=== PATIENT | female | born 1990 | race Caucasian/White ===

== ENCOUNTER 2020-04-07 19:38 | Emergency (ER) | payer OTHER, MEDICAID, SELFPAY ==
[2020-04-07 19:57] VITALS: BP 133/93; PULSE 88; RESP 16; TEMP 37; O2SAT 98; BMI 28.3
--- NOTE | 2020-04-07 20:02 | PC.NURSE ---
Patient reports last normal cycle end of February. Heavy bleeding and cramping for couple days my cervix hurts, the last time I bleed like this was with a miscarriage Patient unsure if . Normally fairly regular with menstrual cycle. Reports some dizziness and the life is being sucked out of me
[2020-04-07] MEDS: SODIUM CHLORIDE 0.9% 1,000 ML 125 ML IV (20:15)
[2020-04-07 20:26] LABS: Add Manual Diff / Slide Review NO; Basophils Absolute Auto 0 /uL (0-100); Basophils Percent Auto 0.6 % (0-2); Eosinophils Absolute Auto 200 /uL (0-450); Eosinophils Percent Auto 2.1 % (2-4); Hematocrit 39.7 % (36-46); Hemoglobin 13.5 g/dL (12.0-16.0); Lymphocytes Absolute Auto 2400 /uL (1100-4500); Lymphocytes Percent Auto 29.1 % (25-40); Mean Corpuscular Hemoglobin 31.7 PG (26-34); Mean Corpuscular Volume 93.2 fL (80-100); Monocytes Absolute Auto 700 /uL (0-900); Neutrophils Absolute Auto 4900 /uL (1500-7000); Neutrophils Percent Auto 60.2 % (50-75); Platelet Count 383 X10^3/uL (150-400); Red Blood Cell Count 4.26 X10^6/uL (4.0-5.2); Red Cell Distribution Width 13.7 % (11.6-14.8); White Blood Cell Count 8.1 X10^3/uL (4.5-11.0)
[2020-04-07 20:32] LABS: Amorphous Sediment Urine 1+; Bacteria Urine Many (>30); Culture Indicated Urine Specimen Cultured; Mucus Urine 1+ (Negative); RBC Urine 10-30/HPF (0-5/HPF); Squamous Epithelial Cell Urine 1-5 /HPF (0-5/HPF); WBC Urine 5-10/HPF (0-5/HPF)
[2020-04-07 20:36] LABS: BUN Creatinine Ratio 23.1 (6-22); Blood Urea Nitrogen 21 mg/dL (7-17); Calcium 9.4 mg/dL (8.4-10.2); Carbon Dioxide 28 mmol/L (22-32); Chloride 106 mmol/L (98-107); Estimated Glomerular Filt Rate > 60.0 mL/min (>60); Glucose 86 mg/dL (70-100); HEMOLYSIS < 15 (0-50); Potassium 3.8 mmol/L (3.4-5.1); Sodium 140 mmol/L (137-145)
--- NOTE | 2020-04-07 20:53 | DI.US.S_ITS ---
PROCEDURE: US PELVIC COMPLETE INDICATIONS: PELVIC PAIN WITH HEAVY BLEEDING. TECHNIQUE: Real-time scanning was performed of the pelvic organs, with image documentation. Additional endovaginal scanning was necessary due to incomplete visualization of the adnexal and endometrial structures by transabdominal scanning. COMPARISON: None. FINDINGS: Transabdominal scanning: Limited scanning through the kidneys shows no hydronephrosis. No pathologic free abdominal or pelvic fluid. Endovaginal scanning: Uterus: Uterus is normal in size at 10.7 x 4.8 x 6.2 cm. The endometrium measures 7 mm in combined thickness. Ovaries: Right ovary measures 3.7 x 1.9 x 2.0 cm left ovary measures 3.0 x 1.8 x 3.8 cm. Doppler interrogation demonstrates appropriate waveforms in both ovaries. IMPRESSION: Negative examination. No evidence of ovarian torsion Dictated by: Vinicio Saldivar M.D. on 04/07/2020 at 21:59 Approved by: Vinicio Saldivar M.D. on 04/07/2020 at 22:01
--- NOTE | 2020-04-07 21:49 | PC.NURSE ---
Patient very sleepy, woke minimally for US. I am just so drained
--- NOTE | 2020-04-07 22:11 | ED_ITS ---
HPI - Female Genitourinary General Chief complaint: Vaginal Bleeding Stated complaint: vaginal bleeding 3xweeks Time Seen by Provider: 04/07/20 19:40 Source: patient Mode of arrival: Ambulatory Limitations: no limitations History of Present Illness HPI Narrative: 29-year-old female daily smoker with noncontributory medical history presents with a chief complaint of episodes of vaginal bleeding off and on for the past few weeks. She states that she presents today because she had some intense pelvic cramping and it reminds her of a miscarriage. She denies being . She denies vaginal discharge. She denies dysuria, frequency or urgency. She states her discomfort is suprapubic and cramping in nature. She has become a bit fatigued but is not necessarily dizzy or lightheaded. She denies any chest pain or shortness of breath MD Complaint: vaginal bleeding Onset (ago): week(s) Location: suprapubic Female Urogenital Radiation: Non-Radiating Severity: moderate Quality: Aching and Cramping Duration: intermittent Relieving factors: none Exacerbating factors: none Vaginal discharge: dark blood Related Data Previous Rx's Medication Instructions Recorded medroxyprogesterone See Rx Instructions .ROUTE 04/07/20 .COMPLEX #70 tab Allergies Allergy/AdvReac Type Severity Reaction Status Date / Time No Known Drug Allergies Allergy Verified 04/07/20 20:00 Review of Systems Constitutional Constitutional: Denies chills, Denies fatigue, Denies fever(s), Denies frequent falls, Denies lethargy and Denies weakness Eyes Eyes: Denies change in vision, Denies eye discharge, Denies irritation and Denies loss of vision ENT Ears, Nose, Mouth, and Throat: Denies change in voice, Denies dizziness, Denies neck pain, Denies sore throat and Denies throat swelling Cardiovascular Cardiovascular: Denies chest pain, Denies irregular heart rhythm, Denies lightheadedness, Denies palpitations, Denies dyspnea, Denies dyspnea on exertion and Denies orthopnea Respiratory Respiratory: Denies cough, Denies dyspnea, Denies dyspnea on exertion and Denies wheezing Gastrointestinal Gastrointestinal: Denies abdominal pain, Denies change in bowel habits, Denies diarrhea, Denies nausea and Denies vomiting Genitourinary Genitourinary: Reports abnormal vaginal bleeding and Reports pelvic pain Musculoskeletal Musculoskeletal: Denies neck pain and Denies numbness Integumentary/Breasts Skin/Breast: Denies pruritus, Denies erythema, Denies rash and Denies wounds Neurologic Neurologic: Denies behavioral changes, Denies confusion, Denies dizziness, Denies frequent falls, Denies loss of vision, Denies numbness and Denies weakness Psychiatric Psychiatric: Denies anxiety, Denies behavioral changes, Denies confusion, Denies depression, Denies homicidal ideation and Denies suicidal ideation Endocrine Endocrine: Denies fatigue, Denies flushing and Denies palpitations Hematologic/Lymphatic Hematologic/Lymphatic: Denies easy bruising Allergic/Immunologic Allergic/Immunologic: Denies urticaria, Denies throat swelling and Denies wheezing Patient History alcohol intake frequency: holidays/special occasions only Substance Use Type: marijuana Exam Narrative Exam Narrative: GEN: AOx3 and in mild distress EYES: Pupils are equal, round, and reactive to light and accommodation. Extrao ccular muscles are intact bilaterally. There is no subconjunctival hemorrhage or exudate. CHEST: Lungs are clear to auscultation bilaterally and free of wheezes, rales, or rhonchi. Heart rate is regular rhythm, there are no murmurs, clicks, rubs, or gallops. There is no chest wall tenderness. ABD: Abdomen is soft and nontender. There is no guarding or rebound. Bowel sounds are normal in all 4 quadrants. There is no mass or organomegaly. EXT: Full painless ROM of all extremities with no loss of sensation or strength. SKIN: Warm, pink, and dry. No erythema or rash Initial Vital Signs Initial Vital Signs: Vital Signs Temperature 98.6 F 04/07/20 19:57 Pulse Rate 88 04/07/20 19:57 Respiratory Rate 16 04/07/20 19:57 Blood Pressure 133/93 H 04/07/20 19:57 Pulse Oximetry 98 04/07/20 19:57 Course Orders Ordered: ED Orders 04/07/20 20:18 Basic Metabolic Panel Stat Complete Blood Count AUTO DIFF Stat Type and Screen Stat Urine Culture Stat Urine Microscopic Stat 04/07/20 20:53 US pelvic complete Stat Discontinued Medications Sodium Chloride (Normal Saline 0.9%) 1,000 mls @ 125 mls/hr IV CONT ERIN Last Infusion: 04/07/20 22:32 Dose: 125 mls/hr Documented by: Admin: 04/07/20 20:15 Dose: 125 mls/hr Documented by: MARTHA Vital Signs Vital signs: Vital Signs - 8 hr 04/07/20 22:41 Pulse Rate 82 Respiratory Rate 12 Blood Pressure 137/89 Pulse Oximetry 100 MDM - Female Genitourinary Lab Data Result diagrams: 04/07/20 20:18 04/07/20 20:18 Labs: Lab Results 04/07/20 04/07/20 04/07/20 Range/Units 20:18 20:18 20:18 WBC 8.1 (4.5-11.0) X10^3/uL RBC 4.26 (4.0-5.2) X10^6/uL Hgb 13.5 (12.0-16.0) g/dL Hct 39.7 (36-46) % MCV 93.2 (80-100) fL MCH 31.7 (26-34) PG MCHC 34.0 (30-36) % RDW 13.7 (11.6-14.8) % Plt Count 383 (150-400) X10^3/uL Neut % (Auto) 60.2 (50-75) % Lymph % (Auto) 29.1 (25-40) % [place] % (Auto) 8.0 (3-14) % Eos % (Auto) 2.1 (2-4) % Baso % (Auto) 0.6 (0-2) % Neut # (Auto) 4900 (4259-3009) /uL Lymph # (Auto) 2400 (2724-0147) /uL [place] # (Auto) 700 (0-900) /uL Eos # (Auto) 200 (0-450) /uL Baso # (Auto) 0 (0-100) /uL Sodium 140 (137-145) mmol/L Potassium 3.8 (3.4-5.1) mmol/L Chloride 106 (98-107) mmol/L Carbon Dioxide 28 (22-32) mmol/L BUN 21 H (7-17) mg/dL Creatinine 0.91 (0.52-1.04) mg/dL Estimated GFR > 60.0 (>60) mL/min BUN/Creatinine Ratio 23.1 H (6-22) Glucose 86 (70-100) mg/dL Calcium 9.4 (8.4-10.2) mg/dL Urine RBC (0-5/HPF) Urine WBC (0-5/HPF) Ur Squamous Epith Cells (0-5/HPF) Amorphous Sediment Urine Bacteria (None) Urine Mucus (Negative) Ur Culture Indicated? Blood Type A Negative Antibody Screen Negative 04/07/20 Range/Units 20:18 WBC (4.5-11.0) X10^3/uL RBC (4.0-5.2) X10^6/uL Hgb (12.0-16.0) g/dL Hct (36-46) % MCV (80-100) fL MCH (26-34) PG MCHC (30-36) % RDW (11.6-14.8) % Plt Count (150-400) X10^3/uL Neut % (Auto) (50-75) % Lymph % (Auto) (25-40) % [place] % (Auto) (3-14) % Eos % (Auto) (2-4) % Baso % (Auto) (0-2) % Neut # (Auto) (0414-5988) /uL Lymph # (Auto) (3094-6845) /uL [place] # (Auto) (0-900) /uL Eos # (Auto) (0-450) /uL Baso # (Auto) (0-100) /uL Sodium (137-145) mmol/L Potassium (3.4-5.1) mmol/L Chloride (98-107) mmol/L Carbon Dioxide (22-32) mmol/L BUN (7-17) mg/dL Creatinine (0.52-1.04) mg/dL Estimated GFR (>60) mL/min BUN/Creatinine Ratio (6-22) Glucose (70-100) mg/dL Calcium (8.4-10.2) mg/dL Urine RBC 10-30/hpf H (0-5/HPF) Urine WBC 5-10/hpf H (0-5/HPF) Ur Squamous Epith Cells 1-5 /hpf (0-5/HPF) Amorphous Sediment 1+ Urine Bacteria Many (>30) H (None) Urine Mucus 1+ H (Negative) Ur Culture Indicated? Specimen cultured Blood Type Antibody Screen Point of Care Testing Test Results Negative Urine Dip Bedside Urine Glucose Negative Bedside Urine Bilirubin + 1 Bedside Urine Ketone +/- 5 Urine Specific [place] 1.030 Bedside Urine Occult Blood +++ Bedside Urine pH 6.0 Bedside Urine Protein +/- 15 Bedside Urine Urobilinogen +/- 1mg Bedside Urine Nitrite + Positive Bedside Urine Leukocytes - Negative Esterase Discharge Plan Departure Patient Disposition: Home Clinical Impression: Vaginal bleeding, Pelvic pain Discharge Date/Time: 04/07/20 22:53 Instructions: DI for Vaginal Bleeding Activity Restrictions/Additional Instructions: *You have been diagnosed with [vaginal bleeding and pelvic cramping] *What to do: *Take medications as directed *Follow up with your primary care provider in 2-3 days, call for an appointment. Let them know you were seen in the Emergency Department and that we ask that you be seen in follow up *Return to ER if you should have any new, worsening or concerning symptoms Prescriptions: New medroxyprogesterone 10 mg tablet See Rx Instructions .ROUTE .COMPLEX Qty: 70 RF: 0 Referrals: [facility] [Outside] [place],MD Tala [Physician] -
[2020-04-07 22:41] VITALS: BP 137/89; PULSE 82; RESP 12; O2SAT 100
== END 2020-04-07 22:53 | disposition home or self-care (01) ==
PROVIDERS: Emergency Provider Emergency Medicine
DX: N93.9 Abnormal uterine and vaginal bleeding, unspecified (principal); R10.2 Pelvic and perineal pain
CPT/HCPCS: 36415; 76830; 76856; 80048; 81003; 81015; 81025; 85025; 86850; 86900; 86901; 87077; 87086; 87186; 96360; 96361; 99284

== ENCOUNTER 2021-06-11 19:41 | Outpatient (CLI) | payer OTHER, MEDICAID, SELFPAY ==
--- NOTE | 2021-06-11 20:18 | PC.NURSE ---
pt in the room @1950 no Hx of care/ pt is unsure of gestation/presents visually to look full term -refuses care-fear that a particular provider is here working on unit-said, im sorry I don't want to be here, do I need to sign somethimng to leave? Myesha and this RN in the room for interaction-offered support and reassurance-pt left room before being put on the monitor-called pt to check in and reassure her-no aswer
== END 2021-06-11 19:57 | disposition home or self-care (01) ==
LOC: LABOR 20:22 → OB 06-30 07:02
PROVIDERS: Referring Provider Nurse Practitioner Obstetrics & Gynecology; Visit Provider Nurse Practitioner Obstetrics & Gynecology
DX: O26.899 Other specified pregnancy related conditions, unspecified trimester (principal); M54.5 Low back pain; R10.30 Lower abdominal pain, unspecified
CPT/HCPCS: G0378; G0379